=== PATIENT | female | born 2000 | race Asian ===

== ENCOUNTER 2021-09-17 10:42 | Emergency (ER) | payer OTHER ==
[~2021-09-17] VITALS: Ht 154.9 cm; Wt 66.2 kg
[2021-09-17 10:46] VITALS: TEMP 97.3
[2021-09-17 11:32] VITALS: BP 120/68
== END 2021-09-17 11:32 | disposition home or self-care (01) ==
LOC: ED 10:42
DX: R07.89 Other chest pain (principal)
CPT/HCPCS: 93005; 99282

== ENCOUNTER 2021-10-28 14:58 | Outpatient (CLI) | payer OTHER | END 2021-10-28 19:22 | disposition home or self-care (01) | LOC: RAD 14:58 | PROVIDERS: ATTEND Nurse Practitioner Family | DX: R20.2 Paresthesia of skin (principal) ==